=== PATIENT | male | born 1970 | race Caucasian/White ===

== ENCOUNTER → 2020-01-15 10:12 | Outpatient (BNVA) | payer BC, SELFPAY | PROVIDERS: Family Provider Nurse Practitioner Family; Visit Provider Nurse Practitioner Family | DX: Z11.59 Encounter for screening for other viral diseases (principal) | CPT/HCPCS: 87635 ==

== ENCOUNTER 2021-11-19 19:43 | Emergency (ER) | payer SELFPAY ==
[2021-11-19 20:02] VITALS: BP 142/86; PULSE 120; RESP 14; TEMP 37.9; O2SAT 98; BMI 36.1
[2021-11-19 20:29] LABS: Basophils # 0.1 10^3/uL (0.0-0.1); Basophils % 0.5 %; Eosinophils # 0.1 10^3/uL (0.0-0.8); Eosinophils % 1.3 %; Hematocrit 44.9 % (42.0-52.0); Hemoglobin 14.9 g/dL (11.7-16.6); Lymphocytes # 1.1 10^3/uL (0.8-4.8); Lymphocytes % 10.9 %; Mean Corpuscular HGB Conc 33.2 g/dL (30.0-36.0); Mean Corpuscular Hemoglobin 28.7 pg (28.0-34.0); Mean Corpuscular Volume 86.5 fl (80-94); Mean Platelet Volume 10.4 fL (7.4-10.4); Monocytes # 0.9 10^3/uL (0.2-0.9); Monocytes % 9.4 %; Neutrophils # 7.66 10^3/uL (1.8-7.7); Neutrophils % 77.5 %; Nucleated Red Blood Cells % 0 %; Platelet Count 190 10^3/cmm (130-400); Red Blood Count 5.19 10^6/uL (4.1-5.3); Red Cell Distribution Width 12.8 % (12.1-15.1); White Blood Count 9.9 10^3/uL (4.0-10.0)
--- NOTE | 2021-11-19 20:33 | W.ED.ABDPA2 ---
HPI - Abdominal Pain General: Chief Complaint: Abdominal Pain Stated Complaint: abd pain Time Seen by Provider: 11/19/21 20:14 Source: patient and family Mode of arrival: ambulatory Limitations: no limitations History of Present Illness: Patient comes to the emergency department because of progressive abdominal pain. He states Monday he was at work and felt like he was having shaking chills and thought that he was might be getting sick and made his way home and states he has been in bed since that time. He states that he is developed some epigastric pains which seems to move down to his right lower abdomen. 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 He states he has not been hungry but has not had any vomiting. He states has had loose stools. No known exposure to infectious disease. No one else at home or at work is currently ill. He has not had any sore throat cough dysuria etc. No abdominal surgeries. Past smoker no other contributory medical history at this time. MD elicited complaint: abdominal pain Location: Periumbilical and RLQ Quality: aching Exacerbating factors: movement Relieving factors: rest Associated Symptoms: Reports chills, diarrhea and nausea; Denies dysuria, hematochezia, melena and vomiting Review of Systems Const: Reports: chills Eyes: Denies: change in vision ENMT: Denies: throat pain, odynophagia, nasal discharge or nasal congestion Card: Denies: chest pain, palpitations or irregular heart rhythm Resp: Denies: dyspnea, productive cough or non-productive cough GI: Reports: abdominal pain, nausea and diarrhea; Denies: vomiting, hematochezia or melena : Denies: flank pain, difficulty urinating, dysuria or urinary frequency Musc: Denies: neck pain, back pain or extremity pain Skin/Breast: Denies: rash, pruritus or erythema Neuro: Denies: headache(s), numbness in extremities or weakness in extremities PFSH ED PFSH: Social History Smoking and tobacco status: never smoked Second hand smoke exposure: No Smoking risk assessment/counseling performed?: No Alcohol intake: never Desire information about alcohol rehabilitation?: No Counseling given: No Desire information about substance/drug rehabilitation?: No Counseling given: No Lives independently: Yes Household members: spouse Housing: House Marital status: History of recent travel: No Physical Exam Narrative: EXAM NARRATIVE: Since lying on examination cot. He is cooperative but appears to be somewhat ill. Const: COMMON NORMALS: patient oriented x3 and alert GENERAL APPEARANCE: cooperative NUTRITIONAL APPEARANCE: overweight ORIENTATION/CONSCIOUSNESS: Yes awake HENMT: COMMON NORMALS: normocephalic, atraumatic, Normal nasal mucous membranes and turbinates present, moist oral mucous membranes and oropharynx normal HEAD & SCALP: normocephalic and atraumatic FACE & SINUS: normal facial exam and sinuses nontender NOSE: Normal nasal mucous membranes and turbinates present Eye: COMMON NORMALS: Equal, round and reactive pupils present, EOMs intact bilaterally and conjunctivae normal CONJUNCTIVA: Yes conjunctivae normal PUPIL: Yes Equal, round and reactive pupils present Neck/C-Spine: COMMON NORMALS: full ROM, no lymphadenopathy and no meningeal signs Chest: COMMONS NORMALS: normal inspection of the chest Resp: COMMON NORMALS: normal respiratory effort, No use of accessory muscles and clear to auscultation bilaterally AUSCULTATION: clear to auscultation bilaterally Cardio: COMMON NORMALS: regular rate, regular rhythm, S1 normal heart sound present, S2 normal heart sound present, No murmurs present (Cardio) and Peripheral pulses 2+ throughout RATE: regular rate RHYTHM: regular rhythm HEART SOUNDS: S1 normal heart sound present and S2 normal heart sound present PERIPHERAL PULSES: Peripheral pulses 2+ throughout GI: COMMON NORMALS: Soft to palpation and no masses PALPATION: Yes Soft to palpation, Yes Tenderness to palpation present (GI) Details: RLQ and Yes Guarding due to palpation present (GI) in the RLQ : COMMON NORMALS: Yes no CVA tenderness BLADDER/KIDNEY EXAM: Yes no CVA tenderness Back/Pelvis: COMMON NORMALS: no CVA tenderness, thoracic and lumbar spine normal to inspection and no thoracic nor lumbar tenderness Extremity: COMMON NORMALS: normal to inspection, capillary refill normal, no joint enlargement, no calf tenderness and no pedal edema Neuro: COMMON NORMALS: patient oriented x3, moves all extremities, no focal motor deficits and no sensory deficits noted SENSORIUM/ORIENTATION: Yes alert MENINGEAL SIGNS: Yes no meningeal signs CRANIAL NERVES: Yes CN normal except as noted Psych: COMMON NORMALS: mental status grossly normal Skin: COMMON NORMALS: no rashes or lesions noted, turgor normal and no jaundice GENERAL SKIN EXAM: no rashes or lesions noted and turgor normal Course Reevaluation(s): Reevaluation #1: Patient subjectively feels better. He is thirsty and requesting water. No new or focal findings on repeat examination. Will start on antibiotics in the emergency department. I shared all findings, proposed plan of care and expected course with both patient and spouse. They voiced understanding. Time: 21:59 Reevaluation #2: Patient drinking fluids without difficulty. Heart rate is below 100 blood pressure systolic is in the 120s he otherwise looks markedly better. Suitable for discharge as noted above. Time: 22:19 Vital Signs: Vital signs: Vital Signs Temperature 98.5 F 11/19/21 21:45 Pulse Rate 104 H 11/19/21 21:45 Respiratory Rate 16 11/19/21 21:45 Blood Pressure 127/88 11/19/21 21:45 Pulse Oximetry 93 11/19/21 21:45 Oxygen Delivery Me thod 11/19/21 21:45 MDM - Abdominal Pain Medical Decision Making Patient presented to the emergency department with history of subjective feeling unwell and developing abdominal discomfort that progressed over the past 2 and half days. No known exposure to infectious disease. Clinical examination revealed initially ill-appearing but responded to both IV and p.o. fluids and clinically and subjectively improved. Imaging revealed evidence of colitis without any evidence of appendicitis or other surgical conditions at this time. He has had no respiratory symptoms which makes unlikely any respiratory involvement despite CT scan and suggestion of possible infiltrate versus atelectasis which clinically favors the latter. The patient did not suggest any findings of severe infection or concern at this time able to take fluids well and desires to be discharged. I think is reasonable for us to treat him empirically with antibiotics given the concern of possible bacterial translocation due to his inflammatory condition at this time. He denies any bloody stools or other suggestion of an toxigenic E. coli. Discussed return precautions in detail with both patient and spouse as well. They voiced understanding. We will begin on Augmentin for the next 7 days as well as pain control and antispasmodics. Lab Data : 11/19/21 20:17 11/19/21 20:17 Labs/Radiology: Radiology Impressions Abdomen/Pelvis CT 11/19/21 20:38 IMPRESSION: 1. Wall thickening of the right colon and transverse colon consistent with a colitis. 2. Several prominent right lower quadrant mesenteric lymph nodes measuring up to 9.1 mm, nonspecific. 3. Diverticulosis without diverticulitis. 4. Constipation. 5. L1 vertebral body compression fracture without retropulsion of bony fragments, may be chronic. 6. Cholelithiasis. 7. Left lower lobe atelectasis versus minimal infiltrate. Laboratory Results WBC 9.9 10^3/uL (4.0-10.0) 11/19/21 20:17 RBC 5.19 10^6/uL (4.1-5.3) 11/19/21 20:17 Hgb 14.9 g/dL (11.7-16.6) 11/19/21 20:17 Hct 44.9 % (42.0-52.0) 11/19/21 20:17 MCV 86.5 fl (80-94) 11/19/21 20:17 MCH 28.7 pg (28.0-34.0) 11/19/21 20:17 MCHC 33.2 g/dL (30.0-36.0) 11/19/21 20:17 RDW 12.8 % (12.1-15.1) 11/19/21 20:17 Plt Count 190 10^3/cmm (130-400) 11/19/21 20:17 MPV 10.4 fL (7.4-10.4) 11/19/21 20:17 Neut % (Auto) 77.5 % 11/19/21 20:17 Lymph % (Auto) 10.9 % 11/19/21 20:17 [place] % (Auto) 9.4 % 11/19/21 20:17 Eos % (Auto) 1.3 % 11/19/21 20:17 Baso % (Auto) 0.5 % 11/19/21 20:17 Neut # (Auto) 7.66 10^3/uL (1.8-7.7) 11/19/21 20:17 Lymph # (Auto) 1.1 10^3/uL (0.8-4.8) 11/19/21 20:17 [place] # (Auto) 0.9 10^3/uL (0.2-0.9) 11/19/21 20:17 Eos # (Auto) 0.1 10^3/uL (0.0-0.8) 11/19/21 20:17 Baso # (Auto) 0.1 10^3/uL (0.0-0.1) 11/19/21 20:17 Nucleated RBC % (auto) 0 % 11/19/21 20:17 Nucleated RBCs # 0.0 /100WBC 11/19/21 20:17 Sodium 138 mmol/L (136-145) 11/19/21 20:17 Potassium 3.7 mmol/L (3.5-5.1) 11/19/21 20:17 Chloride 104 mmol/L (98-107) 11/19/21 20:17 Carbon Dioxide 23 mmol/L (22-29) 11/19/21 20:17 Anion Gap 14.7 (5-19) 11/19/21 20:17 BUN 12 mg/dL (6-20) 11/19/21 20:17 Creatinine 0.9 mg/dL (0.7-1.2) 11/19/21 20:17 GFR Calculation 89.3 mL/min (90-130) L 11/19/21 20:17 Glucose 89 mg/dL (65-115) 11/19/21 20:17 Calculated Osmolality 285 mOsm/kg (285-295) 11/19/21 20:17 Calcium 8.8 mg/dL (8.5-10.5) 11/19/21 20:17 Total Bilirubin 0.6 mg/dL (0.15-1.2) 11/19/21 20:17 AST 19 U/L (0-40) 11/19/21 20:17 ALT 18 U/L (0-41) 11/19/21 20:17 Alkaline Phosphatase 69 U/L (40-130) 11/19/21 20:17 Total Protein 6.6 g/dL (6.6-8.7) 11/19/21 20:17 Albumin 3.8 g/dL (3.5-5.2) 11/19/21 20:17 Globulin 2.8 g/dL (1.3-4.6) 11/19/21 20:17 Lipase 29 U/L (13-60) 11/19/21 20:17 Discharge Plan Discharge Patient Disposition: Home Clinical Impression: Colitis Condition: Stable Prescriptions: New amoxicillin-pot clavulanate 875-125 mg tablet 1 tab PO BID Qty: 14 0RF Levsin 0.125 mg tablet 0.125 mg PO Q6H PRN (Reason: spasms) Qty: 20 0RF hydrocodone-acetaminophen 7.5-325 mg tablet 1 tab PO Q8H PRN (Reason: pain) Qty: 10 0RF Discharge Orders: Discharge ED (Routine); Ordered 11/19/21 Ordered By: Marco Birmingham Discharge Diet: Advance as tolerated and Full LIquid Discharge Activity: Increase activity as tolerated Patient Instructions: Colitis (ED), Opioid Safety Activity Restrictions/Additional Instructions: As we discussed you have an inflammation of the intestines called colitis. They are treating this with antibiotics and pain medicine. It is important that you continue to drink 2 to 3 quarts of fluids daily. We recommend starting with clear liquids and advancing to full liquid diet and then as you tolerate those types of foods advancing to a more regular diet. Continue the antibiotics until they are completely done. Should you develop persistent or worsening symptoms, high fevers, inability to take medications or blood in your stools or other concerns return to this emergency department as soon as possible. Coding Level of Care Code ED Bracelet [employer]och Maker for Aretha Lo Exam Comprehensive
--- NOTE | 2021-11-19 20:38 | CTR_ITS ---
PROCEDURE INFORMATION: Exam: CT Abdomen And Pelvis Without Contrast Exam date and time: 11/19/2021 8:54 PM Age: 51 years old Clinical indication: Abdominal pain; Localized; Right; Patient HX: RT sided abd pain; Additional info: Migrating rlq pain-suggestive of appy TECHNIQUE: Imaging protocol: Computed tomography of the abdomen and pelvis without contrast. Radiation optimization: All CT scans at this facility use at least one of these dose optimization techniques: automated exposure control; mA and/or kV adjustment per patient size (includes targeted exams where dose is matched to clinical indication); or iterative reconstruction. COMPARISON: CR Ribs LEFT w PA Chest [id number] 09/03/2018 10:15 AM RADIATION DOSE METRICS: Total DLP (mGy-cm): 950.72 FINDINGS: Lungs: Left lower lobe atelectasis versus minimal infiltrate. Liver: Normal. No mass. Gallbladder and bile ducts: Cholelithiasis. Pancreas: Normal. No ductal dilation. Spleen: Normal. No splenomegaly. Adrenal glands: Normal. No mass. Kidneys and ureters: Normal. No hydronephrosis. Stomach and bowel: Wall thickening of the right colon and transverse colon consistent with a colitis. Diverticulosis without diverticulitis. Constipation. Appendix: No evidence of appendicitis. Intraperitoneal space: Unremarkable. No free air. No significant fluid collection. Vasculature: Unremarkable. No abdominal aortic aneurysm. Lymph nodes: Several prominent right lower quadrant mesenteric lymph nodes measuring up to 9.1 mm, nonspecific. Urinary bladder: Unremarkable as visualized. Reproductive: Unremarkable as visualized. Bones/joints: L1 vertebral body compression fracture without retropulsion of bony fragments, may be chronic. Soft tissues: Unremarkable. CT/CT abdomen pelvis wo con [id number] IMPRESSION: 1. Wall thickening of the right colon and transverse colon consistent with a colitis. 2. Several prominent right lower quadrant mesenteric lymph nodes measuring up to 9.1 mm, nonspecific. 3. Diverticulosis without diverticulitis. 4. Constipation. 5. L1 vertebral body compression fracture without retropulsion of bony fragments, may be chronic. 6. Cholelithiasis. 7. Left lower lobe atelectasis versus minimal infiltrate.
[2021-11-19 20:49] LABS: Alanine Aminotransferase 18 U/L (0-41); Albumin Level 3.8 g/dL (3.5-5.2); Alkaline Phosphatase 69 U/L (40-130); Anion Gap 14.7 (5-19); Aspartate Amino Transferase 19 U/L (0-40); Blood Urea Nitrogen 12 mg/dL (6-20); Calcium 8.8 mg/dL (8.5-10.5); Carbon Dioxide 23 mmol/L (22-29); Chloride 104 mmol/L (98-107); Globulin 2.8 g/dL (1.3-4.6); Glomerular Filtration Rate 89.3 mL/min (90-130); Glucose 89 mg/dL (65-115); Lipase 29 U/L (13-60); Osmolality Calculated 285 mOsm/kg (285-295); Potassium 3.7 mmol/L (3.5-5.1); Sodium 138 mmol/L (136-145); Total Bilirubin 0.6 mg/dL (0.15-1.2); Total Protein 6.6 g/dL (6.6-8.7)
[2021-11-19] MEDS: sodium chloride 0.9% 1,000 ML 999 ML IV (20:50)
[2021-11-19] MEDS: morphine 4 mg/mL SDV 1 mL IVP (21:25)
[2021-11-19] MEDS: hyoscyamine ODT 0.125 mg Tablet PO (21:43)
[2021-11-19 21:45] VITALS: BP 127/88; PULSE 104; RESP 16; TEMP 36.9; O2SAT 93
[2021-11-19] MEDS: amoxicillin-clav 875-125 mg Tablet 1 TAB PO (22:31)
[2021-11-19 22:32] VITALS: BP 119/98; PULSE 93; RESP 18; O2SAT 97
== END 2021-11-19 22:38 | disposition home or self-care (01) ==
PROVIDERS: Emergency Provider Emergency Medicine
DX: K52.9 Noninfective gastroenteritis and colitis, unspecified (principal)
CPT/HCPCS: 74176; 80053; 83690; 85025; 96361; 96374; 99285; J2270; J7030